=== PATIENT | male | born 2000 | race Caucasian/White ===

== ENCOUNTER → 2023-07-23 | Outpatient (REF) | payer SELFPAY ==
[2023-07-23 18:16] LABS: BASO % 0.6 % (0.0-1.0); EOS # 0.1 10^3/uL (0.0-0.5); EOS % 1.4 % (0.0-3.0); HEMATOCRIT 44.8 % (42.0-52.0); HEMOGLOBIN 15.3 g/dl (13.5-17.5); LYMPH # 2.5 10^3/uL (1.5-5.0); LYMPH % 34.9 % (24.0-44.0); MEAN CORPUSCULAR HGB CONC 34.2 g/dl (32.0-36.5); MEAN CORPUSCULAR VOLUME 87.8 fl (80.0-96.0); MONO # 0.6 10^3/uL (0.0-0.8); MONO % 8.7 % (2.0-8.0); NEUTROPHILS # 3.8 10^3/uL (1.5-8.5); NEUTROPHILS % 54.1 % (36.0-66.0); PLATELET COUNT, AUTOMATED 240 10^3/uL (150-450)
[2023-07-23 18:39] LABS: THYROID STIMULATING HORMONE 1.889 uIU/ML (0.55-4.78); TOTAL 25(OH) VITAMIN D 37.8 NG/ML (20.0-100.0)
[2023-07-23 18:40] LABS: FERRITIN 57.5 NG/ML (10.5-307.3); FOLATE 14.3 NG/ML (>5.4); IRON (FE) 108 UG/DL (65-175)
[2023-07-23 18:41] LABS: FREE T4 1.09 NG/DL (0.89-1.76); PERCENT SATURATION 34.7 % (19.7-50.0); TOTAL IRON BINDING CAPACITY 311 UG/DL (250-425)
[2023-07-23 18:42] LABS: ALBUMIN 4.4 G/DL (3.2-5.2); ALKALINE PHOSPHATASE 54 U/L (46-116); ALT/SGPT 17 U/L (7.0-40); AST/SGOT 32 U/L (<34); BILIRUBIN,TOTAL 0.5 MG/DL (0.3-1.2); BLOOD UREA NITROGEN 22 MG/DL (9-23); CALCIUM LEVEL 9.3 MG/DL (8.5-10.1); CARBON DIOXIDE LEVEL 26 MMOL/L (20-31); CHLORIDE LEVEL 106 MMOL/L (98-107); CREATININE FOR GFR 1.33 MG/DL (0.70-1.30); GLOMERULAR FILTRATION RATE > 60.0 (>60); GLUCOSE, FASTING 78 MG/DL (60-100); POTASSIUM SERUM 4.4 MMOL/L (3.5-5.1); SODIUM LEVEL 140 MMOL/L (136-145); TOTAL PROTEIN 7.4 G/DL (5.7-8.2); VITAMIN B12 LEVEL 504 PG/ML (211-911)
[2023-07-23 21:44] LABS: HEMOGLOBIN A1c 4.6 % (4.0-6.0)
== END ==
LOC: M LABDRAWP 17:17
PROVIDERS: ATTEND Physician Assistant
DX: Z13.29 Encounter for screening for other suspected endocrine disorder (principal); Z13.0 Encounter for screening for diseases of the blood and blood-forming organs and certain disorders involving the immune mechanism

== ENCOUNTER → 2023-07-28 | Outpatient (CLI) | payer BC | LOC: M WUC 13:00 | PROVIDERS: ATTEND Nurse Practitioner Family | DX: M25.511 Pain in right shoulder (principal) ==

== ENCOUNTER 2023-08-15 20:17 | Emergency (ER) | payer BC ==
[~2023-08-15] VITALS: Ht 190.5 cm; Wt 90.9 kg
[2023-08-15 21:06] LABS: ETHYL ALCOHOL (ETHANOL) < 0.003 % (0.000-0.010)
[2023-08-15 21:10] LABS: BASO % 0.7 % (0.0-1.0); EOS # 0.1 10^3/uL (0.0-0.5); EOS % 1.7 % (0.0-3.0); HEMATOCRIT 42.1 % (42.0-52.0); HEMOGLOBIN 14.7 g/dl (13.5-17.5); LYMPH # 2.5 10^3/uL (1.5-5.0); MEAN CORPUSCULAR HEMOGLOBIN 29.9 pg (27.0-33.0); MEAN CORPUSCULAR HGB CONC 34.9 g/dl (32.0-36.5); MEAN CORPUSCULAR VOLUME 85.7 fl (80.0-96.0); MONO # 0.8 10^3/uL (0.0-0.8); MONO % 14.1 % (2.0-8.0); NEUTROPHILS # 2.3 10^3/uL (1.5-8.5); NEUTROPHILS % 40.2 % (36.0-66.0); PLATELET COUNT, AUTOMATED 218 10^3/uL (150-450); RED BLOOD COUNT 4.91 10^6/uL (4.30-6.10); WHITE BLOOD COUNT 5.7 10^3/uL (4.0-10.0)
[2023-08-15] MEDS ORDERED: levETIRAcetam INJection 1,000 MG in D5W 100 ML IV ONE (22:15)
[2023-08-15 22:53] LABS: ALBUMIN 4.4 G/DL (3.2-5.2); ALKALINE PHOSPHATASE 52 U/L (46-116); ALT/SGPT 23 U/L (7.0-40); AST/SGOT 16 U/L (<34); BILIRUBIN,DIRECT 0.2 MG/DL (<0.4); BILIRUBIN,TOTAL 0.4 MG/DL (0.3-1.2); BLOOD UREA NITROGEN 19 MG/DL (9-23); CALCIUM LEVEL 9.8 MG/DL (8.5-10.1); CARBON DIOXIDE LEVEL 16 MMOL/L (20-31); CHLORIDE LEVEL 104 MMOL/L (98-107); CREATININE FOR GFR 1.03 MG/DL (0.70-1.30); GLOMERULAR FILTRATION RATE > 60.0 (>60); GLUCOSE, FASTING 119 MG/DL (60-100); MAGNESIUM LEVEL 1.9 MG/DL (1.8-2.4); POTASSIUM SERUM 4.2 MMOL/L (3.5-5.1); SODIUM LEVEL 141 MMOL/L (136-145); TOTAL PROTEIN 7.1 G/DL (5.7-8.2)
[2023-08-15 23:10] LABS: APPEARANCE, URINE CLEAR (CLEAR); BILIRUBIN, URINE AUTO NEGATIVE (NEGATIVE); BLOOD, URINE BLOOD 1+ (NEGATIVE); COLOR, URINE YELLOW (YELLOW); GLUCOSE, URINE (UA) AUTO NEGATIVE (NEGATIVE); KETONE, URINE AUTO 1+ mg/dL (NEGATIVE); LEUKOCYTE ESTERASE, URINE AUTO NEGATIVE (NEGATIVE); NITRITE, URINE AUTO NEGATIVE (NEGATIVE); PROTEIN, URINE AUTO 1+ mg/dL (NEGATIVE); SPECIFIC GRAVITY URINE AUTO 1.018 (1.002-1.035); UROBILINOGEN, URINE AUTO 0.2 mg/dL (0.0-2.0)
[2023-08-15 23:12] LABS: BACTERIA, URINE AUTO NEGATIVE (NEGATIVE); GRANULAR CAST, URINE AUTO 7 /LPF; MUCUS, URINE SMALL (NEGATIVE); RBC, URINE AUTO 0 /HPF (0-3); SQUAMOUS EPITHELIAL CELL UR AU 0 /HPF (0-6); WBC, URINE AUTO 1 /HPF (0-3)
[2023-08-15 23:17] LABS: AMPHETAMINES LEVEL URINE NEGATIVE (NEGATIVE); BARBITURATES URINE NEGATIVE (NEGATIVE); BENZODIAZEPINES URINE NEGATIVE (NEGATIVE); CANNABINOIDS URINE NEGATIVE (NEGATIVE); COCAINE METABOLITE URINE NEGATIVE (NEGATIVE); METHADONE URINE NEGATIVE (NEGATIVE); OPIATES URINE NEGATIVE (NEGATIVE); PHENCYCLIDINE URINE NEGATIVE (NEGATIVE)
[2023-08-16] VITALS: BP 142/63
[2023-08-16 00:02] VITALS: TEMP 97.9; O2SAT 97
== END 2023-08-16 00:08 | disposition short-term general hospital (02) ==
LOC: EDBD 20:17 → M ED 20:17
DX: D33.2 Benign neoplasm of brain, unspecified (principal); G40.909 Epilepsy, unspecified, not intractable, without status epilepticus; F10.10 Alcohol abuse, uncomplicated
CPT/HCPCS: 70450; 70486; 71045; 72125; 80048; 80076; 80307; 81001; 82077; 82140; 83605; 83735; 85025; 87486; 87581; 87633; 87798; 93041; 94760; 96374; 99285; J1953

== ENCOUNTER → 2024-10-30 | Outpatient (CLI) | payer BC | LOC: M RAD 13:04 | PROVIDERS: ATTEND Physician Assistant | DX: M22.2X1 Patellofemoral disorders, right knee (principal) ==

== ENCOUNTER → 2025-03-07 | Outpatient (CLI) | payer BC | LOC: M PLAIMG 06:38 | PROVIDERS: ATTEND Physician Assistant | DX: M25.462 Effusion, left knee (principal); M67.52 Plica syndrome, left knee ==

== ENCOUNTER 2025-06-13 07:10 | Day surgery (SDC) | payer BC ==
[~2025-06-13] VITALS: Ht 190.5 cm; Wt 88.4 kg
[~2025-06-13 07:10] MED LIST: LEVE10003 PO; LEVE500T5 PO; [UNRECOGNIZED DRUG - CODE] PO; [UNRECOGNIZED DRUG - CODE] PO
[2025-06-13] MEDS ORDERED: LR 1,000 ML IV SCH (08:35)
[2025-06-13] MEDS ORDERED: LIDOCAINE 2% 100 MG/5 ML SDV (FOR ANES.) As Ordered ONE (09:13)
[2025-06-13] MEDS ORDERED: KETOROLAC 30 MG/ML 1 ML VIAL As Ordered ONE (09:15)
[2025-06-13] MEDS ORDERED: dexAMETHasone 4 MG/ML 1 ML VIAL As Ordered ONE (09:15)
[2025-06-13] MEDS ORDERED: ONDANSETRON 4MG 2ML VIAL As Ordered ONE (09:15)
[2025-06-13] MEDS ORDERED: MIDAZOLAM INJ 2 MG/2 ML VIAL As Ordered ONE (09:17)
[2025-06-13] MEDS: ceFAZolin SOD 2 GM IV ONCE IV ONE (09:43)
[2025-06-13] MEDS: LIDOCAINE W/EPINEPHrine 1% 20 ML VIAL As Ordered ONE (10:19)
[2025-06-13] MEDS: MORPHINE 10 MG/ML 1 ML VIAL As Ordered ONE (10:57)
[2025-06-13] MEDS ORDERED: MEPERIDINE 25 MG/ML 1 ML VIAL IV PRN (11:05)
[2025-06-13] MEDS ORDERED: ONDANSETRON 4MG 2ML VIAL IV PRN (11:05)
[2025-06-13] MEDS ORDERED: SUZE50TA PO (11:15)
[2025-06-13 12:05] VITALS: BP 130/65; TEMP 96.5; O2SAT 100
== END 2025-06-13 12:20 | disposition home or self-care (01) ==
LOC: M SDC 07:10
PROVIDERS: ATTEND Neuromusculoskeletal Medicine, Sports Medicine
DX: M22.42 Chondromalacia patellae, left knee (principal); M67.52 Plica syndrome, left knee; M65.962 Unspecified synovitis and tenosynovitis, left lower leg; Z79.899 Other long term (current) drug therapy; Z90.49 Acquired absence of other specified parts of digestive tract
CPT/HCPCS: 29875; J0665; J0690; J1100; J1885; J2250; J2405; J3010

== ENCOUNTER → 2025-09-01 | Outpatient (CLI) | payer OTHER ==
[~2025-09-01] MED LIST changes: +SUZE50TA PO
[2025-09-01 17:55] LABS: BASO # 0.0 10^3/uL (0.0-0.2); BASO % 0.7 % (0.0-1.0); EOS # 0.0 10^3/uL (0.0-0.5); EOS % 0.7 % (0.0-3.0); LYMPH # 1.8 10^3/uL (1.5-5.0); LYMPH % 33.1 % (24.0-44.0); MONO # 0.5 10^3/uL (0.0-0.8); MONO % 9.5 % (2.0-8.0); NEUTROPHILS # 3.1 10^3/uL (1.5-8.5); NEUTROPHILS % 55.8 % (36.0-66.0); PLATELET COUNT, AUTOMATED 226 10^3/uL (150-450)
[2025-09-01 18:28] LABS: ALT/SGPT 19.0 U/L (7.0-40); AST/SGOT 18.0 U/L (<34); CALCIUM LEVEL 8.8 MG/DL (8.5-10.1); CARBON DIOXIDE LEVEL 28.0 MMOL/L (20-31); CHLORIDE LEVEL 106.0 MMOL/L (98-107); CREATININE FOR GFR 1.17 MG/DL (0.70-1.30); GLOMERULAR FILTRATION RATE 88.2 (>60); POTASSIUM SERUM 4.6 MMOL/L (3.5-5.1); SODIUM LEVEL 142.0 MMOL/L (136-145)
== END ==
LOC: M PLALAB 16:26
PROVIDERS: ATTEND Psychiatry & Neurology Neurology
DX: G40.209 Localization-related (focal) (partial) symptomatic epilepsy and epileptic syndromes with complex partial seizures, not intractable, without status epilepticus (principal)

== ENCOUNTER 2025-09-20 08:06 | Emergency (ER) | payer OTHER ==
[~2025-09-20] VITALS: Ht 190.5 cm; Wt 90.0 kg
[2025-09-20 08:14] VITALS: TEMP 97.2
[2025-09-20 09:30] VITALS: BP 143/74; O2SAT 99
== END 2025-09-20 09:38 | disposition home or self-care (01) ==
LOC: M ED 08:06
DX: G40.909 Epilepsy, unspecified, not intractable, without status epilepticus (principal); V49.40XA Driver injured in collision with unspecified motor vehicles in traffic accident, initial encounter; Y92.410 Unspecified street and highway as the place of occurrence of the external cause; Y93.89 Activity, other specified; Y99.9 Unspecified external cause status; Z91.09 Other allergy status, other than to drugs and biological substances; Z79.899 Other long term (current) drug therapy